=== PATIENT | male | born 1955 | race Caucasian/White ===

== ENCOUNTER 2017-10-23 22:46 | Emergency (ER) | payer MEDICARE, OTHER ==
[~2017-10-23] VITALS: Ht 180.3 cm; Wt 103.0 kg
[2017-10-23 22:50] VITALS: Ht 180.3 cm; Wt 103.0 kg
--- NOTE | 2017-10-24 01:22 | ERD ---
ER Documentation Chief Complaint Chief Complaint RADIATING CP TO EPIGASTRIC AREA OFF AND ON SINCE 1200, NO HX HPI The patient is 62-year-old male, presenting to the ER because of intermittent sternal chest pain since 11:30 AM, each episode lasted for seconds and went away by itself, denies any chest pain at this time. He had similar symptoms previously, his fever, chills, neck pain, chest pain with exertion/vomiting/ diaphoresis, nausea, abdominal pain, vomiting, dysuria, diarrhea. He smokes a pack a day, denies drinking or using any illicit drug Medical history: Hypertension, dyslipidemia Surgical history: None ROS All systems reviewed and are negative except as per history of present illness. Allergies Allergies: Coded Allergies: No Known Allergy (Unverified , 10/24/17) Physical Exam Vitals Vital Signs Date Time Temp Pulse Resp B/P Pulse Ox O2 Delivery O2 Flow Rate FiO2 10/23/17 22:50 97.6 81 20 130/85 97 Physical Exam Const: No acute distress. Head: Atraumatic. Eyes: Normal Conjunctiva. ENT: Normal External Ears, Nose and Mouth. Neck: Full range of motion. No meningismus. Resp: Clear to auscultation bilaterally. Cardio: Regular rate and rhythm. Abd: Soft, non distended, normal bowel sounds, non tender. Skin: No petechiae or rashes. Back: No midline or flank tenderness. Ext: No cyanosis, or edema. Neur: Awake and alert. No focal deficit Psych: Normal Mood and Affect. Result Diagram: 10/24/17 0126 10/24/17 0126 Results 24 hrs Laboratory Tests Test 10/24/17 01:26 White Blood Count 8.610^3/ul Red Blood Count 4.4910^6/ul Hemoglobin 14.0g/dl Hematocrit 40.3% Mean Corpuscular Volume 89.8fl Mean Corpuscular Hemoglobin 31.2pg Mean Corpuscular Hemoglobin Concent 34.7g/dl Red Cell Distribution Width 12.1% Platelet Count 85286^3/UL Mean Platelet Volume 8.8fl Neutrophils % 65.7% Lymphocytes % 22.0% Monocytes % 8.1% Eosinophils % 3.1% Basophils % 0.9% Nucleated Red Blood Cells % 0.0/100WBC Neutrophils # 5.710^3/ul Lymphocytes # 1.910^3/ul Monocytes # 0.710^3/ul Eosinophils # 0.310^3/ul Basophils # 0.110^3/ul Nucleated Red Blood Cells # 0.010^3/ul Sodium Level 138mmol/L Potassium Level 4.2mmol/L Chloride Level 101mmol/L Carbon Dioxide Level 27mmol/L Anion Gap 14 Blood Urea Nitrogen 11mg/dl Creatinine 0.81mg/dl Glucose Level 105mg/dl Calcium Level 10.2mg/dl Troponin I < 0.012ng/ml Procedures/MDM EKG: At 2257 hrs. read by emergency physician Rate/Rhythm: Normal Sinus Rhythm 75 beats/min QRS, ST, T-waves: No ST elevation, no T inversion Impression: Normal EKG EKG: At 1:35 hrs. read by emergency physician Rate/Rhythm: Normal Sinus Rhythm 83 beats/min QRS, ST, T-waves: No ST elevation, no T inversion Impression: Normal EKG Patient Name Clemente Macedo Study Date 10/24/2017 1:41 AM Patient 1955 Accession No. [id number] Referring Physician Andreia Ramos CLINICAL INDICATION: Chest Pain. TECHNIQUE: Single frontal view of the chest was obtained COMPARISON: None FINDINGS: The heart is normal in size. Thoracic aortic atherosclerotic calcifications are present. Low lung volumes with lower lobe pulmonary vascular crowding. Bibasilar , left greater than right scar or discoid atelectasis. No consolidation, pleural effusion, pulmonary edema, or pneumothorax. There are senescent osseous changes. IMPRESSION: 1. Low lung volumes with lower lobe pulmonary vascular crowding. 2. Bibasilar, left greater than right scar or discoid atelectasis. 3. Thoracic aortic atherosclerotic calcifications. 4. Senescent osseous changes. RPTAT: HRSR Signed By: Ej Fuller Md 10/24/2017 2:27:32 AM MEDICAL MAKING DECISION: The patient is a 62-year-old male, presenting with acute transient chest pain of unclear etiology, denies any chest pain now, is stable for o/p f/u The differential diagnoses considered include but are not limited to acute coronary syndrome, acute myocardial infarction, pericarditis, pulmonary embolism , aortic dissection, pneumonia, pleural effusion, pneumothorax, GERD, chest wall pain. Departure Diagnosis: Primary Impression: Chest pain Condition: Good Comments I discussed the findings with the patient. I advised the patient to follow-up with the primary physician in about 1-2 days, sooner if needed and return if any concern. Disclaimer: Inadvertent spelling and grammatical errors are likely due to EHR/ dictation software use and do not reflect on the overall quality of patient care. Also, please note that the electronic time recorded on this note does not necessarily reflect the actual time of the patient encounter. ANDREIA RAMOS MD Oct 24, 2017 01:22
[2017-10-24 01:36] LABS: BASOPHIL # 0.1 10^3/ul (0.0-0.1); BASOPHILS % 0.9 % (0.0-2.0); EOSINOPHILS # 0.3 10^3/ul (0.0-0.5); EOSINOPHILS % 3.1 % (0.0-7.0); HEMATOCRIT 40.3 % (42.0-52.0); LYMPHOCYTES # 1.9 10^3/ul (0.8-2.9); MEAN CORPUSCULAR HEMOGLOBIN 31.2 pg (29.0-33.0); MEAN CORPUSCULAR HGB CONC 34.7 g/dl (32.0-37.0); MEAN CORPUSCULAR VOLUME 89.8 fl (82.0-101.0); MEAN PLATELET VOLUME 8.8 fl (7.4-10.4); MONOCYTE # 0.7 10^3/ul (0.3-0.9); MONOCYTES % 8.1 % (0.0-11.0); NEUTROPHIL # 5.7 10^3/ul (1.6-7.5); NEUTROPHILS % 65.7 % (39.0-77.0); PLATELET COUNT 280 10^3/UL (140-415); RED BLOOD COUNT 4.49 10^6/ul (4.70-6.10); RED CELL DISTRIBUTION WIDTH 12.1 % (11.5-14.5); WHITE BLOOD COUNT 8.6 10^3/ul (4.8-10.8)
[2017-10-24 01:54] LABS: ANION GAP 14 (8-16); BLOOD UREA NITROGEN 11 mg/dl (7-20); CALCIUM 10.2 mg/dl (8.4-10.2); CARBON DIOXIDE 27 mmol/L (21-31); CHLORIDE 101 mmol/L (97-110); CREATININE 0.81 mg/dl (0.61-1.24); GLUCOSE 105 mg/dl (70-220); POTASSIUM 4.2 mmol/L (3.5-5.1); SODIUM 138 mmol/L (135-144)
[2017-10-24 02:08] LABS: TROPONIN-I < 0.012 ng/ml (0.00-0.12)
[2017-10-24 03:20] VITALS: BP 130/84; PULSE 85; RESP 16; TEMP 98.2
--- NOTE | 2017-10-24 06:54 | RADRPT ---
PROCEDURE: XR Chest. CLINICAL INDICATION: Chest Pain. TECHNIQUE: Single frontal view of the chest was obtained COMPARISON: None FINDINGS: The heart is normal in size. Thoracic aortic atherosclerotic calcifications are present. Low lung vo lumes with lower lobe pulmonary vascular crowding. Bibasilar, left greater than right scar or discoi d atelectasis. No consolidation, pleural effusion, pulmonary edema, or pneumothorax. There are senes cent osseous changes. IMPRESSION: 1. Low lung volumes with lower lobe pulmonary vascular crowding. 2. Bibasilar, left greater than right scar or discoid atelectasis. 3. Thoracic aortic atherosclerotic calcifications. 4. Senescent osseous changes. RPTAT: HRSR Physician Eliecer Date Time Electronically viewed and signed by Physician Eliecer on 10/24/2017 02:27 RR/
== END 2017-10-24 03:29 | disposition home or self-care (01) ==
LOC: E/R 22:46
DX: R07.9 Chest pain, unspecified (principal); I10 Essential (primary) hypertension
CPT/HCPCS: 36415; 71010; 80048; 84484; 85025; 93005

== ENCOUNTER 2017-12-21 09:45 | Emergency (ER) | END 2017-12-21 15:03 | disposition left against medical advice (07) ==